=== PATIENT | female | born 1985 | race Caucasian/White ===

== ENCOUNTER 2019-04-09 16:02 | Emergency (ER) | payer OTHER ==
[~2019-04-09] VITALS: Ht 157.5 cm; Wt 103.9 kg
[2019-04-09] MEDS ORDERED: FOLGARD TABLET1 EACH (16:33)
[2019-04-09] MEDS ORDERED: DIETHYLPROPION75 MG (16:35)
== END 2019-04-09 19:11 | disposition home or self-care (01) ==
LOC: ER 16:02
DX: M62.838 Other muscle spasm (principal); M41.84 Other forms of scoliosis, thoracic region

== ENCOUNTER 2023-09-13 10:19 | Emergency (ER) | payer OTHER ==
[~2023-09-13] VITALS: Ht 154.9 cm; Wt 127.9 kg
[~2023-09-13 10:19] MED LIST: DIETHYLPROPION75 MG; DOLOGESIC-DF 51 EACH PO; FOLGARD TABLET1 EACH
== END 2023-09-13 13:30 | disposition home or self-care (01) ==
LOC: ER 10:20
DX: J10.1 Influenza due to other identified influenza virus with other respiratory manifestations (principal); Z20.822 Contact with and (suspected) exposure to COVID-19

== ENCOUNTER 2024-07-10 18:35 | Emergency (ER) | payer OTHER ==
[~2024-07-10] VITALS: Ht 154.9 cm; Wt 127.9 kg
[2024-07-10] MEDS ORDERED: DEXAMETHASONE SODIUM PHOSPHATE 4 MG/ML VIAL IM STA (19:09)
[2024-07-10] MEDS ORDERED: ORPHENADRINE CITRATE 30 MG/ML AMPUL IM STA (19:10)
[2024-07-10] MEDS ORDERED: ORPHENADRINE CITRATE 30 MG/ML AMPUL ONE (19:27)
[2024-07-10] MEDS ORDERED: DEXAMETHASONE SODIUM PHOSPHATE 4 MG/ML VIAL ONE (19:27)
[2024-07-10 20:08] LABS: PH,URINE 6.5 (5.0-8.0); URINE APPEARANCE Clear; URINE BILIRRUBIN Negative (NEGATIVE); URINE BLOOD Small; URINE COLOR Yellow; URINE GLUCOSE Negative (NEGATIVE); URINE KETONE Negative (NEGATIVE); URINE LEUKOCYTE Negative; URINE NITRATE Negative; URINE PROTEIN Negative (NEGATIVE); URINE UROBILINOGEN 0.2 E.U./dl
[2024-07-10 20:09] LABS: HEMATOCRIT 36.1 % (36.0-45.00); MEAN CELL VOLUME 83.3 fL (80.00-100.00); MEAN CORPUSCULAR HEMOGLOBIN 27.7 pg (27.00-32.0); MEAN CORPUSCULAR HGB CONC 33.2 g/dl (32.0-36.0); PLATELET COUNT 330 K/uL (150-450); RED BLOOD COUNT 4.34 M/uL (4.00-6.00); RED CELL DISTRIBUTION WIDTH 15.1 % (11.5-14.5)
[2024-07-10 20:09] LABS: URINE BACTERIA 140.9 uL (0.0-1933); URINE RBC 21.3 uL (0.0-20.8); URINE WBC 2.3 uL (0.0-23.2)
[2024-07-10 20:33] LABS: CALCIUM 9.1 mg/dL (8.5-10.1); CREATININE SERUM 0.79 mg/dL (0.55-1.02); GFR 81.02; POTASSIUM 3.86 mEq/L (3.5-5.1)
[2024-07-10] MEDS ORDERED: [UNRECOGNIZED DRUG - OTHER] PO (21:01)
[2024-07-10] MEDS ORDERED: NASAL MIST126 ML NASAL (21:01)
[2024-07-10] MEDS ORDERED: [UNRECOGNIZED DRUG - OTHER] PO (21:03)
== END 2024-07-10 21:17 | disposition home or self-care (01) ==
LOC: ER 18:36
DX: R53.81 Other malaise (principal); M62.838 Other muscle spasm

== ENCOUNTER 2025-10-11 19:18 | Emergency (ER) | payer OTHER ==
[~2025-10-11] VITALS: Ht 154.9 cm; Wt 127.0 kg
[~2025-10-11 19:18] MED LIST changes: +NASAL MIST126 ML NASAL; +[UNRECOGNIZED DRUG - OTHER] PO; +[UNRECOGNIZED DRUG - OTHER] PO
[2025-10-11] MEDS ORDERED: METHYLPREDNISOLONE SOD SUCC 125 MG VIAL IV ONE (21:45)
[2025-10-11] MEDS ORDERED: 0.9 % SODIUM CHLORIDE 500 ML IV ONE (21:45)
[2025-10-11] MEDS ORDERED: IPRATROPIUM/ALBUTEROL SULFATE 3 ML AMPUL.NEB IH ONE (21:45)
[2025-10-11 22:32] LABS: BASO % 0.3 % (0.1-1.2); EOS # 0.15 (0.04-0.54); EOS % 1.3 % (0.7-7.0); LYMPH # 2.61 (1.18-3.74); LYMPH % 22.4 % (19.3-53.1); MEAN PLATELET VOLUME 10.70 fl (9.4-12.4); MONO # 0.68 (0.24-0.82); MONO % 5.8 % (4.7-12.5); NEUT # 8.15 (1.56-6.13); NEUT % 70.0 % (34.0-71.1); RED CELL DISTRIBUTION WIDTH 14.5 % (11.6-14.4)
[2025-10-11 22:53] LABS: COVID-19 AG NEGATIVE (NEGATIVE)
[2025-10-11 22:54] LABS: ALT/SGPT 24.0 U/L (12-78); AST/SGOT 24.0 U/L (15-37); BILIRUBIN TOTAL 0.34 mg/dL (0.3-1.2); BUN CREA RATIO 17.0 (7.0-25.0); CREATININE SERUM 0.76 mg/dL (0.55-1.02); GFR 83.86; GLOBULINA 4.2 G/DL (2.4-3.5); GLUCOSE FASTING 114.0 mg/dL (65-100); OSMOLALITY SERUM 284.0 MOSM/KG (275-295)
== END 2025-10-12 01:22 | disposition home or self-care (01) ==
LOC: ER 19:19
PROVIDERS: General Practice
DX: B34.9 Viral infection, unspecified (principal); J06.9 Acute upper respiratory infection, unspecified; J45.909 Unspecified asthma, uncomplicated; Z20.822 Contact with and (suspected) exposure to COVID-19